=== PATIENT | female | born 1930 | race Two or more races ===

== ENCOUNTER 2020-01-27 11:59 | Emergency (ER) | payer MEDICARE, OTHER ==
[~2020-01-27] VITALS: Ht 147.3 cm; Wt 58.5 kg
[2020-01-27] MEDS ORDERED: THYROID (12:19)
[2020-01-27] MEDS ORDERED: SODIUM CHLORIDE FLUSH 10ML SYR IVF ONE (12:30)
--- NOTE | 2020-01-27 12:37 | NUR ---
PT REPORTS SHE WAS IN LIVING ROOM, TRIPPED & FELL, LANDED ON RT SHOULDER ON CARPETED SURFACE. DENIES LOC. RT ARM SPINTED, ARM SLING PER EMS. PER EMS, IV WAS INTIATED, FENTANYL 100MCG GIVEN, ATTEMPTED TO GIVE 50MCG MORE WHEN IV INFILTRATED. PIV INITIATED 20G RT FA.
--- NOTE | 2020-01-27 13:25 | NUR ---
PT DEMANDING PAIN MEDICATION; ERP WILL BE NOTIFIED
[2020-01-27] MEDS ORDERED: FENTANYL PF 100 MCG/2ML ONE (13:29)
[2020-01-27] MEDS ORDERED: FENTANYL PF 100 MCG/2ML IV ONE (13:30)
--- NOTE | 2020-01-27 13:34 | NUR ---
PT DEMANDING INJECTION IN HER ARM; INFORMED HER MEDICATION IS GIVEN THROUGH THE IV. PT VOICED UNHAPPINESS WITH ADMINISTRATION ROUTE. FENTANYL GIVEN PER EMAR. DISCUSSED DISLOCATION REDUCTION; VERBAL CONSENT GIVEN.
--- NOTE | 2020-01-27 13:46 | NUR ---
PROCEDURAL CONSENT SIGNED BY PT
[2020-01-27] MEDS ORDERED: PROPOFOL 10 MG/ML, 20ML ONE (14:05)
[2020-01-27] MEDS ORDERED: PROPOFOL 10 MG/ML, 20ML IVPush ONE (14:30)
--- NOTE | 2020-01-27 14:35 | NUR ---
DR RAMIREZ AT FOR SHOULDER REDUCTION. CRASH CART , O2 2LNC APPLIED. Addendum: 01/27/20 at 1449 by CHRIS SEE PROCEDURAL SEDATION DOCUMENT FOR ADDITIONAL INFORMATION.
--- NOTE | 2020-01-27 14:49 | NUR ---
REDUCTION COMPLETED AT 1443. PT O2 DECREASED TO 90%, O2 INCREADED TO 6 LNC. RESP EVEN & UNLABORED. PT EASILY AWAKENED. ORIENTED X4.
--- NOTE | 2020-01-27 15:16 | NUR ---
XR AT BS FOR POST-REDUCTION VIEW.
--- NOTE | 2020-01-27 15:20 | NUR ---
ALLY CHRISTENSEN, "HI", CALLED ED FOR PT STATUS. UNABLE TO CONFIRM PT'S
--- NOTE | 2020-01-27 15:23 | NUR ---
PT PROVIDED VERBAL PERMISSION TO RELEASE INFORMATION. ALLY WILL BE PT'S RIDE HOME; HE MAY BE REACHED AT PT'S HOME NUMBER. WILL NOTIFY PT.
--- NOTE | 2020-01-27 16:01 | NUR ---
TO MICHAEL BR PER JAK. DENIED DIZZINESS/LIGHTHEADEDNESS W/ POSITION CHANGE. RETURNED TO ED ROOM W/OUT INCIDENT.
--- NOTE | 2020-01-27 16:03 | NUR ---
PT REPORTS PAIN W/ MOVEMENT. STATES "I NEED TO GET SHOTS LOCALLY (FOR THE PAIN); TABLETS WON'T WORK". DISCUSSED REQUEST W/ PT; INFORMED HER THAT DOCTOR WILL NOT PRESCRIBE INJECTIONS FOR HOME. WILL NOTIFY ERP
--- NOTE | 2020-01-27 16:45 | NUR ---
XR AT BS
--- NOTE | 2020-01-27 17:06 | NUR ---
PT REPORT TO BJ CASTRO RN. PT CARE TRANSFERRED.
[2020-01-27 17:07] LABS: BASOPHILS % (AUTO) 0 % (0-1); EOSINOPHILS % (AUTO) 1 % (1-7); LYMPHOCYTES % (AUTO) 19 % (22-44); MEAN CORPUSCULAR HEMOGLOBIN 32.7 pg (27.0-34.8); MEAN CORPUSCULAR HGB CONC 33.6 g/dL (32.4-35.8); MEAN PLATELET VOLUME 9.8 fL (7.4-10.4); MONOCYTES % (AUTO) 9 % (2-9); NEUTROPHILS % (AUTO) 71 % (42-75); PLATELET COUNT 165 x10^3/uL (130-400); RED CELL DISTRIBUTION WIDTH 13.8 % (9.6-15.2)
[2020-01-27 17:09] LABS: MD NO
[2020-01-27 17:13] LABS: ALBUMIN 3.6 g/dL (3.4-5.0); ANION GAP 7 mmol/L (5-15); CALCIUM 8.8 mg/dL (8.5-10.1); CHLORIDE 106 mmol/L (98-107); CREATININE 1.04 mg/dL (0.55-1.02)
[2020-01-27] MEDS ORDERED: KETOROLAC 30 MG/1 ML ONE (17:13)
--- NOTE | 2020-01-27 17:23 | NUR ---
BREAK RN: PT C/O PAIN, REPOSITIONED AND PILLOWS PLACED FOR COMFORT, 2/2 RIGHT SHOULDER CLOSED REDUCTION, DISTAL CMS+. PT MED NOTED FOR PAIN 07/30. ICE PACK APPLIED. CALL LIGHT W/I REACH
[2020-01-27] MEDS ORDERED: KETOROLAC 30 MG/1 ML IM PRN (17:30)
[2020-01-27 17:41] VITALS: BP 142/91
--- NOTE | 2020-01-27 17:44 | NUR ---
BREAK RN: Patient/Caregiver given discharge instructions and they have confirmed that they understand the instructions. Patient ambulatory with steady gait to wheelchair for discharge. Pt rpts pain "much better" 04/29
== END 2020-01-27 17:45 | disposition home or self-care (01) ==
LOC: ED 14:19
DX: S43.004A Unspecified dislocation of right shoulder joint, initial encounter (principal); S42.291A Other displaced fracture of upper end of right humerus, initial encounter for closed fracture; W01.0XXA Fall on same level from slipping, tripping and stumbling without subsequent striking against object, initial encounter; Y93.89 Activity, other specified; Y92.098 Other place in other non-institutional residence as the place of occurrence of the external cause; Y99.8 Other external cause status
CPT/HCPCS: 23650; 36415; 71045; 73020; 73030; 80048; 82040; 85025; 96372; 96374; 99285; J1885; J3010